=== PATIENT | male | born 1955 | race Caucasian/White ===

== ENCOUNTER 2016-10-04 15:17 | Emergency (ER) | payer OTHER ==
[~2016-10-04] VITALS: Ht 175.3 cm; Wt 69.9 kg
[2016-10-04 17:13] LABS: MCH 34.1 PG (29.0-34.0); MCHC 34.4 G/DL (30.0-36.0); MEAN PLAT.VOLUME 11.5 uM^3 (9.0-12.4); RBC DIS.WIDTH-CV 16.9 % (11.8-14.6); RBC DIS.WIDTH-SD 61.9 % (39-53)
[2016-10-04 17:18] LABS: MCV 99.1 FL (86-99); RED BLOOD COUNT 3.23 M/uL (4.00-5.50)
[2016-10-04 17:19] LABS: PLATELET COUNT 174 K/uL (156-360)
[2016-10-04 17:22] LABS: CHLORIDE 106 mEq/L (99-109); POTASSIUM 3.5 mEq/L (3.7-5.4); SODIUM 139 mEq/L (136-147)
[2016-10-04 17:24] LABS: GLUCOSE 105 mg/dL (70-99)
[2016-10-04 17:26] LABS: ANION GAP 10 MEQ/L (2-14); TOTAL BILIRUBIN 15.5 mg/dL (0.0-1.0)
[2016-10-04 17:28] LABS: ALKALINE PHOSPHATASE 110 IU/L (3-129); GFR ESTIMATE (CALCULATED) > 59 mL/min/
[2016-10-04 17:29] LABS: UREA NITROGEN (BUN) 7 mg/dL (9-23)
[2016-10-04 22:14] VITALS: BP 133/89
== END 2016-10-04 22:15 | disposition home or self-care (01) ==
LOC: EME 15:17
PROVIDERS: Emergency Medicine
DX: R17 Unspecified jaundice (principal); C22.1 Intrahepatic bile duct carcinoma; K21.9 Gastro-esophageal reflux disease without esophagitis
CPT/HCPCS: 47531; 80053; 82140; 85027; 99281; 99284